=== PATIENT | male | born 1975 | race Caucasian/White ===

== ENCOUNTER → 2017-04-09 | Outpatient (CLI) | payer OTHER ==
[~2017-04-09] MED LIST: ALFUZOSIN HCL E10 MG PO; AMANTADINE HCL100 MG PO; AMPYRA10 MG PO; BACLOFEN10 MG PO; LEMTRADA12 MG/1.2; LEVAQUIN PO; LISINOPRIL; VITAMIN D35000 UNIT PO; ZOVIRAX400 MG PO
--- NOTE | ~2017-04-09 | MR31 ---
[facility] A Service of [facility] & [facility] RADIOLOGY TEXT RESULTS PATIENT: MOISE KHAN LOCATION: [facility] : 79 UNIT #: [id number] AGE: [address]: CHRISTINA BURGOS MD SEX: M ORDER DR: [id number] [address] [address] [id number] O MR#: [id number] Acc #: [id number] NAME: MOISE KHAN : 1975 SEX: M STUDY DATE/TIME: 04/09/2017 9:11 UNIT: [facility] ROOM: STUDY DESCRIPTION: MR Cervical WWo Contrast Attending Physician: Christina Burgos M.D. Referring Physician: Christina Burgos M.D. Ordering Physician: Physician Non-Staff Primary Care Physician: Toi Linder M.D. MRI CENTER REPORT This report is preliminary unless electronic signature is present. EXAM MRI or the cervical spine with and without contrast, 04/09/17 COMPARISON STUDIES MRI cervical spine with and without contrast dated 12/18/16 HISTORY Known multiple sclerosis diagnosed many years ago. Medications are not helping anymore. Possible relapse. History of falls. Weakness and tingling in all extremities. Memory loss. FINDINGS Multisequence, multiplanar imaging of the cervical spine was obtained with and without contrast. 20 cc of MultiHance was administered intravenously. Vertebral body height and alignment are preserved. There is straightening of normal cervical curvature. Degenerative disk signal loss is at multiple levels. Less than 5 mm in size T2 signal is noted within the right lateral aspect of C5-C6 cord, stable and nonenhancing. The lesion is noted in the region of the left inferior cerebellar peduncle close to the spine of [place] in the base of the brain. The increased T2 signal mentioned in the C1-C2 cord along the right lateral aspect is difficult to visualize. It is probably stable given that it changes in slice selection. Several increased T2 signal lesions along the lateral aspect of the cord at the level of C7-T1 is not clearly seen. No significant interval new lesions are identified. There are no enhancing cord lesions. C2-C3: Mild disk osteophyte complex. There is [id number] left neural foraminal narrowing and mild bilateral facet changes particularly in the left. C3-C4: Mild disk bulge but otherwise unremarkable. [facility]. [facility] A Service of [facility] & [facility] RADIOLOGY TEXT RESULTS PATIENT: MOISE KHAN LOCATION: [facility] : 79 UNIT #: [id number] AGE: [address]: CHRISTINA BURGOS MD SEX: M ORDER DR: C4-C5: Mild concentric disk bulge, but otherwise unremarkable. C5-C6: Mild disk bulge with small central protrusion and mild mass effect on the adjacent thecal sac. No neural foraminal narrowing. C6-C7: Concentric disk bulge with tiny central protrusion and mild mass effect on the adjacent thecal sac. Mild left neural foraminal encroachment/ narrowing is seen. C7-T1: Minimal left neural foraminal encroachment. Mild left facet hypertrophic change. IMPRESSION 1. Previously noted scattered cord lesions are again noted, relatively stable. The C7-T1 lesion is not as well seen, which could be due to difference in slice selection or mild interval improvement. 2. No enhancing cord lesions. 3. Degenerative changes are at multiple levels with small central protrusion from C5-C6 to C6-C7 with mild mass effect on the adjacent thecal sac. 4. Left T2 signal neural foraminal narrowing. Dictated by... Wilmer Muñoz M.D. THIS IS AN ELECTRONICALLY VERIFIED REPORT Wilmer Muñoz M.D. at 04/10/2017 6:06 PM CPR/margo TD: 04/09/2017 20:02 JOB #: [id number] MRI CENTER REPORT Page 1 of 1
--- NOTE | ~2017-04-09 | MR175 ---
[facility] A Service of [facility] & [facility] RADIOLOGY TEXT RESULTS PATIENT: OMISE KHAN [facility] 79 UNIT #: [id number] AGE: [address]: CHRISTINA BURGOS MD SEX: M ORDER DR: [id number] [address] [address] [id number] O MR#: [id number] Acc #: [id number] NAME: MOISE KHAN : 1975 SEX: M STUDY DATE/TIME: 04/09/2017 9:45 [facility] ROOM: STUDY DESCRIPTION: MR Thoracic WWo Contrast Attending Physician: Christina Burgos M.D. Referring Physician: Christina Burgos M.D. Ordering Physician: Staff Doctor Not On Primary Care Physician: Toi Linder M.D. MRI CENTER REPORT This report is preliminary unless electronic signature is present. EXAM MRI of the thoracic spine with and without contrast, dated 04/09/17. COMPARISON MRI of the thoracic spine without and with contrast dated 12/05/14. NOTE Please note, both studies are with and without contrast. HISTORY Follow-up known multiple sclerosis diagnosed many years ago. Possible relapse. Medications are not helping anymore. FINDINGS Multisequence, multiplanar imaging of the thoracic spine was obtained with and without contrast. 20 mL of MultiHance was administered intravenously. Motion artifact is noted in the axial images, particularly axial T1, and to a lesser degree in the postcontrast sequence. Vertebral body heights and alignment are preserved. Mild degenerative disc signal loss is seen at T10-11 with mild disc bulge and small left central protrusion. There is probably protrusion/spur in the right subarticular region also. Mild bilateral facet changes are noted with borderline size canal. No significant neural foraminal narrowing. Left facet severe hypertrophic changes with ligamentum flavum thickening is noted at T9-10 causing mass effect on the adjacent thecal sac/mild canal stenosis. No cord compression is seen. Mild facet changes are also noted at T9. Cord demonstrates increased T2 signal within the cord at the upper level of T8 measuring about 3 to 3.5 mm in the mid to left lateral aspect of the cord. Motion artifact limits evaluation. Axial images were obtained only from T6-7 to T10-11 levels. Subtle cord signal changes at other levels cannot be fully evaluated only based on sagittal imaging. Grossly, no large lesion could be identified. [facility] A Service of [facility] RADIOLOGY TEXT RESULTS PATIENT: MOISE KHAN [facility] 79 UNIT #: [id number] AGE: [address]: CHRISTINA BURGOS MD SEX: M ORDER DR: IMPRESSION 1. There is a 3.5 mm lesion in the mid to left side of T8 cord. It has a height of 1.3 cm extending from T7-8 level to T8. In a setting of multiple sclerosis, it is in keeping with chronic plaque. 2. Degenerative changes are noted at T9-10 and T10-11 levels involving the disc and the facet joints with borderline size to mild canal stenosis. Dictated by... Wilmer Muñoz M.D. THIS IS AN ELECTRONICALLY VERIFIED REPORT Wilmer Muñoz M.D. at 04/14/2017 8:31 PM CPR/jshahana TD: 04/10/2017 19:34 JOB #: [id number] MRI CENTER REPORT Page 1 of 1
--- NOTE | ~2017-04-09 | MR17 ---
[facility] A Service of [facility] & [facility] RADIOLOGY TEXT RESULTS PATIENT: MOISE KHAN LOCATION: [facility] : 79 UNIT #: [id number] AGE: [address]: CHRISTINA BURGOS MD SEX: M ORDER DR: [id number] [address] [address] [id number] O MR#: [id number] Acc #: [id number] NAME: MOISE KHAN : 1975 SEX: M STUDY DATE/TIME: 04/09/2017 8:48 UNIT: [facility] ROOM: STUDY DESCRIPTION: MR Brain WWo Contrast Attending Physician: Christina Burgos M.D. Referring Physician: Christina Burgos M.D. Ordering Physician: Staff Doctor Not On Primary Care Physician: Toi Linder M.D. MRI CENTER REPORT This report is preliminary unless electronic signature is present. EXAM MRI of the brain with and without contrast, dated 04/09/17. COMPARISON MRI of the brain with and without contrast dated 12/18/16. HISTORY Known multiple sclerosis diagnosed many years ago. Questioning relapse at this time. Last used medications are not helping any more. FINDINGS Multisequence, multiplanar imaging of the brain was obtained with and without contrast. 20 mL of MultiHance was administered intravenously. There are scattered hyperintense T2-signal lesions in the periventricular and subcortical white matter with relatively larger one in the left anterior frontal bennett radiata measuring 1.2 cm in greatest transverse dimension. Relatively stable given differences in slice selection. Tiny new dots of increased V2 signal cannot be completely excluded in bilateral basal ganglia. No enhancing lesions, acute stroke, hydrocephalus, hemorrhage or midline shift. Thick slices through the sella with the pituitary gland, pineal region and upper cervical spine are unremarkable. IMPRESSION 1. There are multiple nonenhancing hyperintense T2-signal lesions noted in the white matter, likely related to known chronic multiple sclerosis plaques. 2. They are prominently stable. Minimal tiny new hyperintense T2 foci are seen in the basal ganglia which could be slightly better seen on the current study due to difference in slice selection or could be due to minimal worsening if any. 3. No significant other new abnormality like acute stroke, hemorrhage, hydrocephalus or midline shift. [facility]. [facility] A Service of [facility] & [facility] RADIOLOGY TEXT RESULTS PATIENT: MOISE KHAN LOCATION: [facility] #: [id number] : 79 UNIT #: [id number] AGE: [address]: CHRISTINA BURGOS MD SEX: M ORDER DR: Dictated by... Wilmer Muñoz M.D. THIS IS AN ELECTRONICALLY VERIFIED REPORT Wilmer Muñoz M.D. at 04/10/2017 6:06 PM CPR/jt TD: 04/09/2017 18:56 JOB #: [id number] MRI CENTER REPORT Page 1 of 1
== END | disposition home or self-care (01) ==
LOC: SMRI 07:55
DX: G35 Multiple sclerosis (principal); R90.82 White matter disease, unspecified; M47.892 Other spondylosis, cervical region; M50.222 Other cervical disc displacement at C5-C6 level; M50.223 Other cervical disc displacement at C6-C7 level; M99.81 Other biomechanical lesions of cervical region; G95.9 Disease of spinal cord, unspecified; M47.894 Other spondylosis, thoracic region
CPT/HCPCS: 70553; 72156; 72157; A9581

== ENCOUNTER 2017-05-16 19:48 | Emergency (ER) | payer OTHER ==
[~2017-05-16] VITALS: Ht 177.8 cm; Wt 129.3 kg
--- NOTE | ~2017-05-16 | CR142 ---
[facility]. [facility] A Service of [facility] / [facility] RADIOLOGY TEXT RESULTS PATIENT: MOISE KHAN LOCATION: [facility] : 79 UNIT #: [id number] AGE: [address]: MICHAEL LEE SEX: M ORDER DR: [id number] [place] [address] [id number] E MR#: [id number] Acc #: [id number] NAME: MOISE KHAN. : 1975 SEX: M STUDY DATE/TIME: 05/16/2017 21:06 UNIT: [facility] ROOM: STUDY DESCRIPTION: CR Hand Min 3 Views Rt Attending Physician: Michael Lee Ordering Physician: Michael Lee Primary Care Physician: Toi Linder M.D. MEDICAL IMAGING REPORT This report is preliminary unless electronic signature is present. EXAM Right hand series dated 05/16/2017 COMPARISON Right wrist series dated 05/16/2017. HISTORY Patient fell today with right hand and right wrist pain. FINDINGS Three views of the right hand were obtained. Old healed right fifth metacarpal neck and adjacent head and shaft fracture with healing and callous formation. No acute displaced fracture or dislocation is seen. Soft tissues do not demonstrate any significant abnormality. IMPRESSION 1. No acute displaced fracture or dislocation. 2. Old healed right fifth metacarpal neck fracture. Dictated by... Wilmer Muñoz M.D. THIS IS AN ELECTRONICALLY VERIFIED REPORT Wilmer Muñoz M.D. at 05/17/2017 7:56 PM CPR/rnr TD: 05/17/2017 02:04 JOB #: [id number] [facility]. [facility] A Service [facility] RADIOLOGY TEXT RESULTS PATIENT: MOISE KHAN LOCATION: [facility] : 79 UNIT #: [id number] AGE: [address]: MICHAEL LEE SEX: M ORDER DR: MEDICAL IMAGING REPORT Page 1 of 1
--- NOTE | ~2017-05-16 | CR282 ---
[facility]. [facility] A Service of [facility] & [facility] RADIOLOGY TEXT RESULTS PATIENT: MOISE KHAN LOCATION: [facility] : 79 UNIT #: [id number] AGE: [address]: MICHAEL LEE SEX: M ORDER DR: [id number] [place] [id number] E MR#: [id number] Acc #: [id number] NAME: MOISE KHAN : 1975 SEX: M STUDY DATE/TIME: 05/16/2017 21:06 UNIT: [facility] ROOM: STUDY DESCRIPTION: CR Wrist Min 3 View Rt Attending Physician: Michael Lee Ordering Physician: Michael Lee Primary Care Physician: Toi Linder M.D. MEDICAL IMAGING REPORT This report is preliminary unless electronic signature is present. EXAM Right wrist series dated 05/16/2017. COMPARISON Right wrist series dated 04/08/2016. HISTORY Patient fell today with right wrist pain. FINDINGS 3 views of the right wrist were obtained. No acute displaced fracture or dislocation. Old healed right fifth metacarpal neck fracture. Carpal bones are within normal limits. Dictated by... Wilmer Muñoz M.D. THIS IS AN ELECTRONICALLY VERIFIED REPORT Wlimer Muñoz M.D. at 05/17/2017 7:56 PM CPR/rnr TD: 05/17/2017 02:10 JOB #: [id number] MEDICAL IMAGING REPORT Page 1 of 1
[~2017-05-16 19:48] MED LIST changes: -LISINOPRIL
[2017-05-16] MEDS ORDERED: LISINOPRIL (20:23)
== END 2017-05-16 22:12 | disposition home or self-care (01) ==
LOC: SED 19:48
DX: S60.211A Contusion of right wrist, initial encounter (principal); I10 Essential (primary) hypertension; Z79.899 Other long term (current) drug therapy; Z88.5 Allergy status to narcotic agent; Z88.8 Allergy status to other drugs, medicaments and biological substances; W18.30XA Fall on same level, unspecified, initial encounter; Y92.009 Unspecified place in unspecified non-institutional (private) residence as the place of occurrence of the external cause
CPT/HCPCS: 73110; 73130; 99283